=== PATIENT | male | born 1955 | race Caucasian/White ===

== ENCOUNTER 2016-09-16 17:23 | Emergency (ER) | payer MEDICAID ==
[~2016-09-16] VITALS: Ht 180.3 cm; Wt 95.3 kg
[2016-09-16 17:44] VITALS: BP 93/58
[2016-09-16] MEDS ORDERED: Aspirin Baby 81mg ORAL ONE (18:00)
[2016-09-16] MEDS ORDERED: Heparin 5000 units/ml inj IV ONE (18:00)
[2016-09-16 18:05] LABS: MEAN CORPUSCULAR HEMOGLOBIN 32.1 PG (27.0-31.0); MEAN CORPUSCULAR VOLUME 92 FL (80-99); MEAN PLATELET VOLUME 7.1 FL (6.5-10.1); PLATELET COUNT 187 K/UL (150-450); RED BLOOD COUNT 5.11 M/UL (4.70-6.10); RED CELL DISTRIBUTION WIDTH 12.2 % (11.6-14.8)
[2016-09-16 18:06] LABS: TROPONIN I < 0.30 ng/mL (<=0.30)
[2016-09-16 18:07] LABS: CALCIUM 8.7 mg/dL (8.6-10.2); CREATININE 1.3 mg/dL (0.7-1.2); GLOMERULAR FILTRATION RATE 56.1 mL/min (>60); POTASSIUM 5.8 mEQ/L (3.4-4.9); TOTAL PROTEIN 7.6 g/dL (6.6-8.7)
--- NOTE | 2016-09-16 18:18 | Emergency Room Report ---
History of Present Illness General Chief Complaint: Dyspnea/Respdistress Source: Patient, EMS, Caregiver Present Illness HPI 61YOM BIBEMS for 90 min of hypotension, nausea/vomiting and SOB from SNF. Caregiver notes patient got "really pale." Not on HTN meds. History of previous CVA. Doesnt take daily meds. Currently denies chest pain, SOB, abd pain. Denies fever/chills, cough, previous [place], PE. EMS rhythm strip shows acute ST elevation in 2, 3, and AVF with ST depressions in V5, RBBB Allergies: Coded Allergies: No Known Allergies (Unverified , 09/16/16) Patient History Past Medical History: CVA/TIA Past Surgical History: none Pertinent Family History: none Social History: Reports: alcohol use Immunizations: UTD Reviewed Nursing Documentation: PMH: Agreed, PSxH: Agreed Nursing Documentation-PMH Past Medical History: No History, Except For Hx Cerebrovascular Accident: Yes - TIA - right sided weakness Review of Systems All Other Systems: negative except mentioned in HPI Physical Exam Vital Signs Date Time Temp Pulse Resp B/P Pulse Ox O2 Delivery O2 Flow Rate FiO2 09/16/16 17:19 99.9 120 18 130/77 95 Nasal Cannula 6.0 Sp02 EP Interpretation: reviewed, abnormal General Appearance: normal inspection, well appearing, no apparent distress, alert, GCS 15, non-toxic Head: normocephalic, atraumatic Eyes: bilateral eye EOMI, bilateral eye PERRL ENT: normal ENT inspection, hearing grossly normal, normal voice Neck: normal inspection, full range of motion, supple, no bony tend Respiratory: normal inspection, lungs clear, normal breath sounds, no respiratory distress, no retraction, no wheezing Cardiovascular #1: regular rate, rhythm, no edema, tachycardia Genitourinary: no CVA tenderness Musculoskeletal: normal inspection, back normal, normal range of motion, Maida' s Sign negative Neurologic: normal inspection, alert, oriented x3, responsive, firebreak cutter III-XII nml as tested, speech normal Psychiatric: normal inspection, judgement/insight normal, mood/affect normal Skin: normal inspection, no rash, pallor Procedures Critical Care Time Critical Care Time CC time 30 minutes 61 YOM with paleness, nausea/vomiting and hypotension with acute inferior STEMI CC time includes review of EMS rhythm strip, patient's paperwork from SNF, review of ECG, labs D/w [facility] physician for transfer Initiation of IVF NS, ASA, heparin Medical Decision Making Diagnostic Impression: Primary Impression: Dyspnea Qualified Codes: R06.00 - Dyspnea, unspecified Additional Impressions: ST elevation [place] (STEMI) Qualified Codes: I21.3 - ST elevation (STEMI) myocardial infarction of unspecified site Nausea & vomiting Qualified Codes: R11.2 - Nausea with vomiting, unspecified Hypotension Qualified Codes: I95.9 - Hypotension, unspecified Hyperkalemia SCARLET (acute kidney injury) ER Course 61YOM with paleness, nausea/vomiting, hypotension and EMS rhythm strip with ST elevation in inferior leads with ST depression in lateral leads - 90 min of duration - VS significant for tachycardia. - Initial BP was low in ED, slowly normalized - Afebrile. - ECG shows dynamic changes - new Qwaves in [address] elevation most obvious in [address] depressions in V5-6. RBBB. - Given clinical symptoms of n/v and hypotension with ST elevation in 2/3/AVF, concern for inferior [place] - IVF NS given - Was given ASA and heparin bolus - Labs: Mild leuks. K 5.8. SCARLET. Troponin 0 but symptoms started 90 minutes prior. CKMB not back at time of rescue transfer. Calcium gluconate and other meds for hyperK not given in ED here given duration of tx time and urgency of transfer. - D/w Dr Lou at [facility] who accepted rescue transfer at 610pm. EKG Diagnostic Results Rate: tachycardiac Rhythm: other - RBBB ST Segments: other - ST elevation in 2, 3, AVF. ST Depression in V5-6 ASA given to the pt in ED: Yes Rhythm Strip Diag. Results EP Interpretation: yes Rate: 109 Rhythm: NSR Last Vital Signs Date Time Temp Pulse Resp B/P Pulse Ox O2 Delivery O2 Flow Rate FiO2 09/16/16 17:44 115 24 93/58 96 Nasal Cannula 6.0 09/16/16 17:19 99.9 Status: improved Disposition: ADMITTED INPATIENT Condition: Critical KUSUM COLUNGA M.D. Sep 16, 2016 18:18
[2016-09-16 18:31] VITALS: BP 120/66
[2016-09-16 18:32] LABS: CKMB 1.6 ng/mL (< 6.7)
[2016-09-16 19:56] LABS: BAND NEUTROPHILS % (MANUAL) 4 % (0-8); LYMPHOCYTES % (MANUAL) 6 % (20-45); NEUTROPHILS % (MANUAL) 87 % (45-75); TOTAL CELLS COUNTED 100
[2016-09-16 19:57] LABS: BASOPHILS % (MANUAL) 0 % (0-2); EOSINOPHILS % (MANUAL) 0 % (0-3); PLATELET ESTIMATE ADEQUATE; PLATELET MORPHOLOGY NORMAL
--- NOTE | 2016-09-17 10:02 | Diagnostic Imaging Report ---
Indication: SOB Technique: One view of the chest Comparison: none Findings: Right hemidiaphragm is elevated. There is some crowding of the vascular markings at the base as a result. Lungs and pleural spaces are otherwise clear. Heart size is normal. Aorta is tortuous. Impression: No acute process
--- NOTE | 2016-09-17 18:44 | Cardiology Report ---
APPROVED REPORT EKG Measurement Heart [id number] Sinus tachycardia Left axis deviation Right bundle branch block Inferior infarct, age undetermined Abnormal ECG
== END 2016-09-16 18:33 | disposition short-term general hospital (02) ==
LOC: EDBD 17:23 → EMR 18:08
DX: R11.2 Nausea with vomiting, unspecified (principal); R06.00 Dyspnea, unspecified; I21.3 ST elevation (STEMI) myocardial infarction of unspecified site; I95.9 Hypotension, unspecified; E87.5 Hyperkalemia; N17.9 Acute kidney failure, unspecified; I69.351 Hemiplegia and hemiparesis following cerebral infarction affecting right dominant side
CPT/HCPCS: 36415; 71010; 80053; 82550; 82553; 83880; 84484; 85007; 85025; 85730; 93005; 96374; 96375; 99291; J1644